=== PATIENT | male | born 1950 | race Caucasian/White ===

== ENCOUNTER 2023-08-15 09:41 | Outpatient (CLI) | payer MEDICARE, SELFPAY ==
--- NOTE | ~2023-08-15 | MR_ITS ---
MRI of the lumbar spine Clinical History: Spondylosis Technique: Axial T2-weighted images, and sagittal T1-weighted, T2-weighted, and T2 fat-sat images wer e acquired. Findings: There is no fracture or subluxation of the lumbar spine. Vertebral bodies maintain normal h eight and alignment. No suspicious bone marrow signal abnormality seen. At L1-L2, there is no disc bulge or herniation. There is moderate facet arthropathy. No central canal stenosis. There is mild to moderate left neural foraminal narrowing. Right neural foramen preserved. At L2-L3, there is mild degenerative disc narrowing. There is disc bulge and moderate facet arthropat hy, with minimal central canal stenosis. There is moderate to severe right neural foraminal narrowing , and moderate left neural foraminal narrowing. At L3-L4, there is mild degenerative disc narrowing. Diffuse disc bulge and advanced facet arthropath y result in mild central canal stenosis. There is severe bilateral neural foraminal, otherwise. At L4-L5, there is disc bulge with severe facet arthropathy and probable very small right-sided synov ial cyst. There is moderate to severe spinal canal stenosis/thecal sac compression, with severe bilat eral neural foraminal narrowing. At L5-S1, there is minimal disc bulge with moderate facet arthropathy. No central canal stenosis. The re is moderate right neural foraminal narrowing, and minimal left neural foraminal narrowing. Paravertebral soft tissues are unremarkable. Impression: Advanced degenerative spondylosis, as detailed above, worst at L4-L5. Reviewed, dictated and finalized at [facility]. Impression: Advanced degenerative spondylosis, as detailed above, worst at L4-L5.
== END 2023-08-15 09:42 ==
LOC: MICIMG 09:43
PROVIDERS: PCP Nurse Practitioner Family; Visit Provider Nurse Practitioner Family
DX: M47.816 Spondylosis without myelopathy or radiculopathy, lumbar region (principal)
CPT/HCPCS: 72148